=== PATIENT | male | born 1960 | race Caucasian/White ===

== ENCOUNTER 2017-08-29 10:20 | Inpatient (IN) | payer BC ==
[~2017-08-29] VITALS: Ht 177.8 cm; Wt 85.7 kg
[~2017-08-29 10:20] MED LIST: BACITRACIN 50,000 UNIT ONE; BUPIVACAINE/PF 0.5% ONE; EPINEPHRINE 1 MG/ML, 1ML ONE; PROPOFOL 50 ML ONE; THROMBIN 5,000 UNIT VIAL TP ONE
[2017-08-29] MEDS ORDERED: THROMBIN 20,000 UNIT VIAL TP ONE (10:54)
[2017-08-29] MEDS ORDERED: LACTATED RINGERS 1,000 ML IV SCH (10:59)
[2017-08-29] MEDS ORDERED: OXYcodone IR 5MG TABLET PO ONE (11:00)
[2017-08-29] MEDS ORDERED: LIDOCAINE 1%, 2ML SQ PRN (11:00)
[2017-08-29] MEDS ORDERED: ACETAMINOPHEN 500 MG TABLET PO ONE (11:00)
[2017-08-29] MEDS ORDERED: GABAPENTIN 300 MG CAPSULE PO ONE (11:00)
[2017-08-29] MEDS ORDERED: LIDOCAINE-MPF 1%, 2ML ONE (11:03)
[2017-08-29] MEDS ORDERED: ACETAMINOPHEN 500 MG TABLET ONE (11:05)
[2017-08-29] MEDS ORDERED: OXYcodone IR 5MG TABLET ONE (11:06)
[2017-08-29] MEDS ORDERED: GABAPENTIN 300 MG CAPSULE ONE (11:06)
[2017-08-29] MEDS ORDERED: IBUP200T64 PO (11:28)
[2017-08-29] MEDS ORDERED: HYDR-3307 PO (11:28)
[2017-08-29] MEDS ORDERED: MIDAZOLAM 1 MG/ML, 2ML ONE (12:04)
[2017-08-29] MEDS ORDERED: FENTANYL PF 250 MCG/5ML ONE (12:04)
[2017-08-29] MEDS ORDERED: DEXAMETHASONE 4 MG/ML, 1ML ONE ×2 (12:20→12:21)
[2017-08-29] MEDS ORDERED: ONDANSETRON 2MG/ML, 2ML ONE (12:20)
[2017-08-29] MEDS ORDERED: PROPOFOL 10 MG/ML, 20ML ONE (12:20)
[2017-08-29] MEDS ORDERED: CEFAZOLIN 1,000 MG ONE (12:20)
[2017-08-29] MEDS ORDERED: LIDOCAINE-MPF 2% ,5ML ONE ×2 (12:21→15:37)
[2017-08-29] MEDS ORDERED: SUCCINYLCHOLINE 20 MG/ML, 10ML ONE (12:21)
[2017-08-29] MEDS ORDERED: ROCURONIUM 10 MG/ML,10ML ONE (14:05)
[2017-08-29] MEDS ORDERED: OXYcodone 5 MG/5 ML ORAL.SOL UDC PO PRN (15:30)
[2017-08-29] MEDS ORDERED: MIDAZOLAM 1 MG/ML, 2ML IV PRN (15:30)
[2017-08-29] MEDS ORDERED: ALBUTEROL/IPRATROPIUM 2.5MG/0.5MG, 3 ML NPPB PRN (15:30)
[2017-08-29] MEDS ORDERED: LABETALOL 5MG/ML, 20ML IV PRN ×2 (15:30→19:30)
[2017-08-29] MEDS ORDERED: PROMETHAZINE 25 MG/ML, 1ML IV PRN (15:30)
[2017-08-29] MEDS ORDERED: MEPERIDINE/PF 25MG/0.5ML IVPush PRN (15:30)
[2017-08-29] MEDS ORDERED: DIAZEPAM 5 MG/ML, 2ML IVPush PRN (15:30)
[2017-08-29] MEDS ORDERED: ONDANSETRON 2MG/ML, 2ML IVPush PRN (15:30)
[2017-08-29] MEDS ORDERED: hydrALAzine 20 MG/ML, 1ML IV PRN (15:30)
[2017-08-29] MEDS ORDERED: FENTANYL PF 100 MCG/2ML ONE (16:35)
[2017-08-29] MEDS ORDERED: ACETAMINOPHEN 650 MG/20.3 ML UDC ONE (16:35)
[2017-08-29] MEDS: FENTANYL PF 100 MCG/2ML IV PRN ×2 (16:35→16:49)
[2017-08-29] MEDS ORDERED: OXYcodone 5 MG/5 ML ORAL.SOL UDC ONE (16:35)
[2017-08-29] MEDS: morphine SULFATE 10 MG/ML, 1ML IV PRN ×5 (17:01→17:53)
[2017-08-29] MEDS ORDERED: morphine SULFATE 10 MG/ML, 1ML ONE ×2 (17:01→17:38)
[2017-08-29] MEDS ORDERED: PROMETHAZINE 25 MG/ML, 1ML IM PRN (19:30)
[2017-08-29] MEDS ORDERED: ONDANSETRON 2MG/ML, 2ML IV PRN (19:30)
[2017-08-29] MEDS ORDERED: DIPHENHYDRAMINE 25 MG CAPSULE PO PRN (19:30)
[2017-08-29] MEDS ORDERED: BISACODYL 10 MG SUPP PR PRN (19:30)
[2017-08-29] MEDS ORDERED: DIPHENHYDRAMINE 50 MG/ML, 1ML IM PRN (19:30)
[2017-08-29] MEDS ORDERED: METHOCARBAMOL 750 MG TABLET PO PRN (19:30)
[2017-08-29] MEDS ORDERED: MAGNESIUM HYDROXIDE 8%, 30ML UDC PO PRN (19:30)
[2017-08-29 20:34] VITALS: BP 119/73
[2017-08-29] MEDS: INSULIN REGULAR 100 UNITS/ML, 3ML VIAL SQ-INSULIN SCH (21:00)
[2017-08-29] MEDS: CEFAZOLIN PMX 1GM/50ML 50 ML IVPB SCH (22:10)
[2017-08-29] MEDS: NS + 20MEQ KCL 1,000 ML IV SCH (22:10)
[2017-08-29] MEDS: DEXAMETHASONE 4 MG/ML, 1ML IVPush SCH (23:14)
[2017-08-30 00:26] VITALS: BP 109/75
[2017-08-30] MEDS: morphine SULFATE 10 MG/ML, 1ML IV PRN ×2 (00:41→05:36)
[2017-08-30 03:18] VITALS: BP 131/77
[2017-08-30] MEDS: DEXAMETHASONE 4 MG/ML, 1ML IVPush SCH ×2 (04:47→12:34)
[2017-08-30] MEDS: CEFAZOLIN PMX 1GM/50ML 50 ML IVPB SCH (05:51)
[2017-08-30] MEDS: INSULIN REGULAR 100 UNITS/ML, 3ML VIAL SQ-INSULIN SCH (06:23)
[2017-08-30] MEDS: NS + 20MEQ KCL 1,000 ML IV SCH (07:33)
[2017-08-30 07:52] VITALS: BP 128/74
[2017-08-30] MEDS: HYDROcodone/APAP 10/325 MG TABLET PO PRN ×2 (08:41→12:34)
[2017-08-30] MEDS ORDERED: SENNA/DOCUSATE TABLET PO SCH (09:00)
[2017-08-30 11:45] VITALS: BP 132/69
[2017-08-30 12:45] VITALS: BP 129/73
[2017-08-30] MEDS ORDERED: METH750T87 PO (13:08)
[2017-08-30] MEDS ORDERED: SENN1TAB7 PO (13:08)
[2017-08-30] MEDS ORDERED: HYDR-3307 PO (13:08)
== END 2017-08-30 13:21 | disposition home or self-care (01) | DRG 518 ==
LOC: OUT 10:20 → 4NOR 18:56 → OUT 19:12 → DCLOUNGE 08-30 13:00
PROVIDERS: ADMIT Neurological Surgery; ATTEND Neurological Surgery
PROC: 0RB30ZZ Excision of Cervical Vertebral Disc, Open Approach (ICD-10-PCS; 2017-08-29)
PROC: 4A11X4G Monitoring of Peripheral Nervous Electrical Activity, Intraoperative, External Approach (ICD-10-PCS; 2017-08-29)
PROC: 0RR30JZ Replacement of Cervical Vertebral Disc with Synthetic Substitute, Open Approach (ICD-10-PCS; principal; 2017-08-29 12:30)
DX: M48.02 Spinal stenosis, cervical region (principal); E78.00 Pure hypercholesterolemia, unspecified; M19.90 Unspecified osteoarthritis, unspecified site; M54.12 Radiculopathy, cervical region
CPT/HCPCS: 72040; 82962; C1713; C1776; J0171; J0690; J1100; J2250; J2405; J2704; J3010; J3480; J3490; C1778; J0330; J2270; J7120